=== PATIENT | male | born 1965 | race Caucasian/White ===

== ENCOUNTER 2024-01-25 12:35 | Inpatient (IN) ==
[2024-01-25] MEDS: ACETAMINOPHEN 325 MG TABLET PO ONE (13:05)
[2024-01-25 13:41] LABS: Basophils # (Auto) 0.02 K/mcL (0.00-0.30); Basophils % (Auto) 0.1 % (0.0-2.0); Eosinophils # (Auto) 0.01 K/mcL (0.00-0.70); Eosinophils % (Auto) 0.1 % (0.0-7.0); Hematocrit 44.7 % (40.1-51.0); Hemoglobin 14.6 g/dL (13.7-17.5); Lymphocytes # (Auto) 1.62 K/mcL (1.50-4.80); Lymphocytes % (Auto) 11.9 % (15.5-49.0); Mean Cell Volume 97.8 fL (80.0-100.0); Mean Corpuscular HGB Conc 32.7 g/dL (31.0-36.0); Mean Platelet Volume 9.9 fL (8.8-12.5); Monocytes # (Auto) 1.18 K/mcL (0.10-0.90); Monocytes % (Auto) 8.6 % (1.0-12.0); Platelet Count 156 K/mcL (140-440); RBC 4.57 M/mcL (4.63-6.08); WBC 13.7 K/mcL (4.5-11.0)
[2024-01-25 13:44] LABS: Erythrocyte Sedimentation Rate 22 mm/hr (0-20)
[2024-01-25 16:20] LABS: Glucose,Synovial Fluid < 2 mg/dL
[2024-01-25 16:31] LABS: Crystals,Body Fluid None Seen (None Seen)
[2024-01-25 17:55] LABS: Appearance,Synovial Fluid Turbid; Color,Synovial Fluid Yellow; Lymphocytes,Synovial Fluid 9 %; Neutrophils,Synovial Fluid 88 % (0-25); Nucleated Cells,Synovial Fld 67000 /cumm; Other Cells,Synovial Fluid 3 %
[2024-01-25 18:47] LABS: Blood Urea Nitrogen 18 mg/dL (6-20); Calcium 9.1 mg/dL (8.6-10.4); Carbon Dioxide 24 mmol/L (22-30); Chloride 98 mmol/L (96-108); Glomerular Filtration Rate 93; Glucose 119 mg/dL (70-105)
[2024-01-25 18:58] LABS: INR 1.1 (0.9-1.1); Prothrombin Time 14.4 sec (11.9-14.5)
[2024-01-25] MEDS: VANCOMYCIN PER PHARMACY IV ONE (19:17)
[2024-01-25] MEDS: ONDANSETRON 4 MG/2 ML VIAL IV ONE (19:27)
[2024-01-25] MEDS: 0.9 % SODIUM CHLORIDE 1,000 ML IV SCH (19:27)
[2024-01-25] MEDS: PIPERACILLIN SODIUM/TAZOBACTAM 4.5 GM in DEXTROSE 5% IN WATER 50 ML IV ONE (19:28)
[2024-01-25] MEDS: cefTRIAXone 2 GM in DEXTROSE 5% IN WATER 50 ML IV ONE (19:28)
[2024-01-25] MEDS: VANCOMYCIN 2,000 MG in 0.9 % SODIUM CHLORIDE 500 ML IV ONE (19:47)
[2024-01-25] MEDS: cefTRIAXone 2 GM in DEXTROSE 5% IN WATER 50 ML IV SCH (20:00)
[2024-01-25] MEDS: VANCOMYCIN 1,750 MG in 0.9 % SODIUM CHLORIDE 500 ML IV SCH (20:35)
[2024-01-25] MEDS ORDERED: HYDROmorphone 1 MG/ML SYRINGE IV PRN (20:45)
[2024-01-25] MEDS: MONTELUKAST 10 MG TABLET PO SCH (21:35)
[2024-01-25] MEDS: amLODIPine 5 MG TABLET PO SCH (21:35)
[2024-01-25] MEDS: LISINOPRIL 10 MG TABLET PO SCH (21:35)
[2024-01-25 22:37] LABS: Appearance,Urine Clear (Clear); Bilirubin,Urine Negative (Negative); Color,Urine Yellow; Culture Indicated,Urine No; Glucose,Urine (UA) Negative (Negative); Ketones,Urine 15 mg/dL (Negative); Leukocyte Esterase,Urine Negative /uL (Negative); Nitrate,Urine Negative (Negative); Protein,Urine Trace mg/dL (Negative); Urine Blood Small ery/mcL (Negative); Urine RBC 3 /hpf (0-3); Urine Squamous Epithelial Cell 0 /hpf (0-4); Urine WBC 1 /hpf (0-4)
[2024-01-25] MEDS: oxyCODONE/APAP 5/325MG TABLET PO PRN (22:59)
[2024-01-25] MEDS: oxyCODONE/APAP 5/325MG TABLET PO ONE (23:13)
[2024-01-25] MEDS: DOCUSATE SODIUM 100 MG CAPSULE PO SCH (23:14)
[2024-01-25] MEDS: ceFAZolin 2 GM in DEXTROSE 5% IN WATER 50 ML IV SCH (23:31)
[2024-01-25] MEDS: ceFAZolin 3 GM in DEXTROSE 5% IN WATER 50 ML IV SCH (23:32)
[2024-01-26] MEDS: morphine 2 MG/ML VIAL IV PRN (01:07)
[2024-01-26] MEDS: ceFAZolin 2 GM in DEXTROSE 5% IN WATER 50 ML IV SCH (07:47)
[2024-01-26] MEDS ORDERED: PROPOFOL 200 MG/20 ML VIAL IV ONE (07:49)
[2024-01-26] MEDS ORDERED: ONDANSETRON 4 MG/2 ML VIAL ONE (07:49)
[2024-01-26] MEDS ORDERED: MAGNESIUM SULFATE 2 GM/50 ML BAG IV ONE (07:49)
[2024-01-26] MEDS ORDERED: LIDOCAINE 2% PF 5 ML VIAL ONE (07:49)
[2024-01-26] MEDS ORDERED: KETAMINE 50 MG/ML Syringe IV ONE (07:49)
[2024-01-26] MEDS ORDERED: DEXAMETHASONE 10 MG/ML VIAL ONE (07:49)
[2024-01-26] MEDS ORDERED: fentaNYL 100 MCG/2 ML VIAL ONE (08:28)
[2024-01-26] MEDS ORDERED: NALOXONE HCL 0.4 MG/ML VIAL IV PRN (08:37)
[2024-01-26] MEDS ORDERED: METHOCARBAMOL 1,000 MG/10 ML VIAL IV PRN (08:37)
[2024-01-26] MEDS ORDERED: ONDANSETRON 4 MG/2 ML VIAL IV PRN (08:37)
[2024-01-26] MEDS ORDERED: IPRATROPIUM/ALBUTEROL 3 ML AMPUL.NEB NEB PRN (08:37)
[2024-01-26] MEDS ORDERED: PROMETHAZINE 25 MG/ML VIAL IV PRN (08:37)
[2024-01-26] MEDS ORDERED: diphenhydrAMINE 50 MG/ML VIAL IV PRN (08:37)
[2024-01-26] MEDS ORDERED: MEPERIDINE 25 MG/ML VIAL IV PRN (08:37)
[2024-01-26] MEDS ORDERED: LACTATED RINGERS 250 ML IV PRN (08:37)
[2024-01-26] MEDS ORDERED: fentaNYL 100 MCG/2 ML VIAL IV PRN (08:37)
[2024-01-26] MEDS ORDERED: LISINOPRIL 10 MG TABLET PO SCH (09:00)
[2024-01-26] MEDS ORDERED: amLODIPine 5 MG TABLET PO SCH (09:00)
[2024-01-26] MEDS ORDERED: HYDROmorphone 1 MG/ML SYRINGE IV PRN (09:04)
[2024-01-26] MEDS: TRANEXAMIC ACID 1,000 MG/10 ML VIAL IV ONE (09:23)
[2024-01-26] MEDS: ACETAMINOPHEN 1,000 MG/100 ML BAG IV ONE (09:28)
[2024-01-26] MEDS: KETOROLAC 30 MG/ML VIAL IV PRN (09:38)
[2024-01-26] MEDS: LACTATED RINGERS 1,000 ML IV SCH (10:36)
[2024-01-26] MEDS: ceFAZolin 3 GM in DEXTROSE 5% IN WATER 50 ML IV SCH (15:30)
[2024-01-26] MEDS: 0.9 % SODIUM CHLORIDE 10 ML SYRINGE IV SCH (15:31)
[2024-01-27] MEDS: HYDROCODONE/APAP 7.5/325MG TABLET PO PRN (02:13)
[2024-01-27] MEDS: cefTRIAXone 2 GM in DEXTROSE 5% IN WATER 50 ML IV SCH (12:35)
[2024-01-28] MEDS ORDERED: SODIUM CHLORIDE IV SCH (07:30)
[2024-01-28] MEDS ORDERED: [UNRECOGNIZED DRUG - OTHER] IV SCH (07:30)
== END 2024-01-27 17:50 | disposition home or self-care (01) | DRG 487 ==
LOC: ED 12:35 → MEDSUR 20:08
PROVIDERS: ADMIT Orthopaedic Surgery; ATTEND Orthopaedic Surgery